=== PATIENT | male | born 1960 | race African-American/Black ===

== ENCOUNTER 2022-10-16 12:00 | Emergency (ER) | payer OTHER, SELFPAY ==
--- NOTE | 2022-10-16 12:03 | XRR_ITS ---
PROCEDURE INFORMATION: Exam: XR Right Knee Exam date and time: 10/16/2022 12:33 PM Age: 62 years old Clinical indication: Pain; Knee; Right; Additional info: Injury TECHNIQUE: Imaging protocol: Radiologic exam of the Right knee. Views: 3 views. COMPARISON: No relevant prior studies available. FINDINGS: Bones/joints: No radiographic evidence of acute fracture or dislocation. Alignment anatomic. Joint spaces preserved. No significant effusion. Soft tissues: Mild anterior and medial soft tissue swelling. XR/XR knee RT 3V* [id number] IMPRESSION: Mild anterior and medial soft tissue swelling.
[2022-10-16 12:07] VITALS: BP 94/53; PULSE 81; RESP 20; TEMP 36.6; O2SAT 97; BMI 25.0
--- NOTE | 2022-10-16 12:40 | W.ED.EXTPRO ---
HPI - Extremity Problem General: Chief complaint: Extremity Problem,Nontraumatic Stated complaint: right knee injury Time Seen by Provider: 10/16/22 12:14 History of Present Illness: Patient is in today for right knee pain. He reports that he was trying to do a workout routine the other day and was doing things that he knew he was too old to be doing. He states that now his knee is really hurting him with bending it hurts on the medial side of the knee. He denies that he had any fall or trauma to the knee. Associated symptoms: Deny fever(s) Review of Systems Const: Denies: fever(s) or chills Resp: Denies: dyspnea, productive cough or non-productive cough GI: Denies: abdominal pain, nausea or vomiting Musc: Reports: joint pain Physical Exam Const: COMMON NORMALS: no acute distress, patient oriented x3 and alert Resp: COMMON NORMALS: normal respiratory effort and No use of accessory muscles Extremity: NARRATIVE EXTREMITY EXAM: No obvious bony deformity to the right knee. There is tenderness to palpation along the medial collateral ligament. There is slight laxity side to side movement. Patient has slight limited flexion of the knee due to pain. CSM within normal limits Neuro: COMMON NORMALS: patient oriented x3 SENSORIUM/ORIENTATION: Yes alert Course Vital Signs: Vital signs: Vital Signs Temperature 97.9 F 10/16/22 12:07 Pulse Rate 81 10/16/22 12:07 Respiratory Rate 20 H 10/16/22 12:07 Blood Pressure 94/53 10/16/22 12:07 Pulse Oximetry 97 10/16/22 12:07 Oxygen Delivery Me thod 10/16/22 12:07 MDM - Extremity (Nontraumatic) Medical Decision Making Consider knee sprain versus arthritic changes versus fracture Knee x-ray had already been ordered by another provider by the time I went to see the patient. Physical exam findings are consistent with a sprain/strain of the medial collateral ligament. X-ray knee 3 view wet read shows no acute osseous deformities Radiologist read knee?mild anterior and medial soft tissue swelling Discharge patient home with conservative treatment. Follow-up with primary care provider as needed. Return to ER for new or worsening symptoms Lab Data Radiology Impressions Knee X-Ray 10/16/22 12:03 IMPRESSION: Mild anterior and medial soft tissue swelling. Discharge Plan Discharge Patient Disposition: Home Clinical Impression: Knee MCL sprain Qualifiers: Encounter type: initial encounter Laterality: right Qualified Code(s): S83.411A - Sprain of medial collateral ligament of right knee, initial encounter Condition: Stable Discharge Orders: Discharge ED (Routine); Ordered 10/16/22 Ordered By: Nathalie Chavez Discharge Diet: Usual diet Discharge Activity: Increase activity as tolerated Patient Instructions: Knee Sprain (ED) Activity Restrictions/Additional Instructions: I recommend conservative treatment at home. Ice, rest, elevate the extremity. Tylenol arthritis can be beneficial in helping with pain control. Geronimo wrap will help to give support and reduce swelling. Follow-up with primary care provider as needed. Return to the ER for new or worsening symptoms Coding Level of Care Code ED [place] [employer] for [employer] Exam Expanded Problem Focused
[2022-10-16] MEDS: acetaminophen 500 mg Tablet 1000 MG PO (12:58)
== END 2022-10-16 13:40 | disposition home or self-care (01) ==
PROVIDERS: Emergency Provider Nurse Practitioner Family
DX: S83.411A Sprain of medial collateral ligament of right knee, initial encounter (principal); X58.XXXA Exposure to other specified factors, initial encounter; Y93.B9 Activity, other involving muscle strengthening exercises
CPT/HCPCS: 73562; 99283